=== PATIENT | male | born 1990 | race Caucasian/White ===

== ENCOUNTER 2019-10-21 09:41 | Emergency (ER) | payer MEDICAID, OTHER ==
[2019-10-21] MEDS ORDERED: ONDANSETRON HCL 4 MG/2 ML VIAL ONE (09:45)
[2019-10-21 10:14] LABS: BASOPHILS % (AUTO) 0.3 % (0.0-5.0); EOSINOPHILS % (AUTO) 0.4 % (0.0-8.0); LYMPHOCYTES % (AUTO) 13.6 % (21.0-51.0); MEAN CORPUSCULAR HEMOGLOBIN 31.1 pg (27.0-33.0); MEAN CORPUSCULAR HGB CONC 33.3 g/dL (32.0-36.0); MEAN CORPUSCULAR VOLUME 93.3 fL (79-99); MONOCYTES % (AUTO) 4.8 % (3.0-13.0); NEUTROPHILS % (AUTO) 79.7 % (40.0-77.0); PLATELET COUNT (AUTO) 263 K/uL (130-400); RED CELL DISTRIBUTION WIDTH 13.2 % (11.0-15.5); WHITE BLOOD COUNT (AUTO) 26.7 K/uL (4.8-10.8)
[2019-10-21 10:27] LABS: CREATININE 1.3 mg/dL (0.5-1.5); POTASSIUM 3.3 mmol/L (3.5-5.1)
[2019-10-21 10:32] LABS: ALBUMIN 4.2 g/dL (3.5-5.0); BILIRUBIN,TOTAL 0.6 mg/dL (0.2-1.0); TOTAL PROTEIN, SERUM 7.2 g/dL (6.0-8.3)
[2019-10-21 12:07] LABS: APPEARANCE,URINE Clear (CLEAR); BILIRUBIN,URINE Negative (NEGATIVE); COLOR,URINE Yellow (YELLOW); GLUCOSE, URINE (UA) 500 mg/dL (NEGATIVE); KETONES,URINE 40 mg/dL (NEGATIVE); LEUKOCYTE ESTERASE ,URINE Negative (NEGATIVE); NITRATE,URINE Negative (NEGATIVE); OCCULT BLOOD,URINE Negative (NEGATIVE); PROTEIN,URINE Negative (NEGATIVE); UROBILINOGEN,URINE 0.2 mg/dL (0.2-1.0)
[2019-10-21 12:17] LABS: BACTERIA,URINE Rare /HPF (None Seen); MUCUS,URINE Rare LPF (None Seen); RBC,URINE 0-1 /HPF (0-1); SQUAMOUS EPITHELIAL CELL,UR Rare /HPF (0-2); WBC,URINE 0-1 /HPF (0-1)
[2019-10-21 12:47] LABS: AMPHET/METH SCREEN,URINE NEGATIVE (NEGATIVE); BARBITURATE SCREEN, URINE NEGATIVE (NEGATIVE); BENZODIAZEPINES SCREEN,URINE NEGATIVE (NEGATIVE); CANNABINOID SCREEN,URINE POSITIVE (NEGATIVE); COCAINE SCREEN,URINE POSITIVE (NEGATIVE); OPIATE SCREEN,URINE NEGATIVE (NEGATIVE); PHENCYCLIDINE SCREEN,URINE NEGATIVE (NEGATIVE)
== END 2019-10-21 13:03 | disposition home or self-care (01) ==
LOC: EDH 09:41
DX: E16.2 Hypoglycemia, unspecified (principal); E86.0 Dehydration; F14.10 Cocaine abuse, uncomplicated; F10.10 Alcohol abuse, uncomplicated; Z72.0 Tobacco use
CPT/HCPCS: 36415; 80053; 80305; 81001; 82948; 85025; 96361; 96374; 99283; J2405

== ENCOUNTER 2020-02-10 08:46 | Emergency (ER) | payer MEDICAID ==
[2020-02-10] MEDS ORDERED: ONDANSETRON HCL 4 MG/2 ML VIAL ONE (08:49)
[2020-02-10 09:13] LABS: BASOPHILS % (AUTO) 0.4 % (0.0-5.0); HEMATOCRIT 42.9 % (42-54); LYMPHOCYTES % (AUTO) 20.6 % (21.0-51.0); MEAN CORPUSCULAR HEMOGLOBIN 31.2 pg (27.0-33.0); MEAN CORPUSCULAR VOLUME 91.7 fL (79-99); MONOCYTES % (AUTO) 4.5 % (3.0-13.0); NEUTROPHILS % (AUTO) 72.9 % (40.0-77.0); PLATELET COUNT (AUTO) 263 K/uL (130-400); RED BLOOD CELL COUNT(AUTO) 4.68 MIL/uL (4.50-6.20); RED CELL DISTRIBUTION WIDTH 12.5 % (11.0-15.5); WHITE BLOOD COUNT (AUTO) 20.7 K/uL (4.8-10.8)
[2020-02-10 09:20] LABS: CREATININE 1.3 mg/dL (0.5-1.5); POTASSIUM 3.4 mmol/L (3.5-5.1)
[2020-02-10 11:03] LABS: AMPHET/METH SCREEN,URINE NEGATIVE (NEGATIVE); BARBITURATE SCREEN, URINE NEGATIVE (NEGATIVE); BENZODIAZEPINES SCREEN,URINE NEGATIVE (NEGATIVE); CANNABINOID SCREEN,URINE POSITIVE (NEGATIVE); COCAINE SCREEN,URINE POSITIVE (NEGATIVE); OPIATE SCREEN,URINE NEGATIVE (NEGATIVE); PHENCYCLIDINE SCREEN,URINE NEGATIVE (NEGATIVE)
== END 2020-02-10 11:47 | disposition home or self-care (01) ==
LOC: EDH 08:46
DX: F14.10 Cocaine abuse, uncomplicated (principal); Z72.0 Tobacco use
CPT/HCPCS: 36415; 80048; 80305; 82550; 82948; 85025; 96361; 96374; 99283; J2405

== ENCOUNTER 2022-11-13 16:44 | Emergency (ER) | payer MEDICAID ==
[~2022-11-13] VITALS: Ht 165.1 cm; Wt 61.2 kg
[2022-11-13] MEDS ORDERED: DEXTROSE 5 % AND 0.9 % NACL 1,000 ML IV ONE (16:54)
[2022-11-13] MEDS ORDERED: DEXTROSE 50%-WATER 50 ML DISP.SYRIN IV ONE (16:54)
[2022-11-13 17:23] LABS: BASOPHILS % (AUTO) 0.4 % (0.0-5.0); EOSINOPHILS % (AUTO) 0.3 % (0.0-8.0); HEMATOCRIT 40.4 % (42-54); LYMPHOCYTES % (AUTO) 14.6 % (21.0-51.0); MEAN CORPUSCULAR HEMOGLOBIN 31.3 pg (27.0-33.0); MEAN CORPUSCULAR HGB CONC 33.4 g/dL (32.0-36.0); MEAN CORPUSCULAR VOLUME 93.5 fL (79-99); MONOCYTES % (AUTO) 3.4 % (3.0-13.0); NEUTROPHILS % (AUTO) 80.6 % (40.0-77.0); PLATELET COUNT (AUTO) 225 K/uL (130-400); RED BLOOD CELL COUNT(AUTO) 4.32 MIL/uL (4.50-6.20); RED CELL DISTRIBUTION WIDTH 12.8 % (11.0-15.5)
[2022-11-13] MEDS ORDERED: THIAMINE HCL 100 MG/ML 2ML VIAL IVP ONE (17:30)
[2022-11-13 17:33] LABS: CREATININE 1.1 mg/dL (0.5-1.5); POTASSIUM 3.9 mmol/L (3.5-5.1)
[2022-11-13 17:42] LABS: ALBUMIN 3.6 g/dL (3.5-5.0); MAGNESIUM 1.4 mg/dL (1.80-2.40); TOTAL PROTEIN, SERUM 6.2 g/dL (6.0-8.3)
[2022-11-13] MEDS ORDERED: 0.9%NACL 1000ML 1,000 ML IV ONE (18:00)
[2022-11-13] MEDS ORDERED: MAGNESIUM 2GM PREMIX 50ML 50 ML IV SCH (18:00)
[2022-11-13] MEDS ORDERED: ONDANSETRON 4MG INJ IVP SCH (18:00)
[2022-11-13 18:10] LABS: APPEARANCE,URINE CLEAR (CLEAR); BILIRUBIN,URINE NEGATIVE (NEGATIVE); COLOR,URINE COLORLESS (YELLOW); GLUCOSE, URINE (UA) >=1000 mg/dL (NEGATIVE); KETONES,URINE 40 mg/dL (NEGATIVE); LEUKOCYTE ESTERASE ,URINE NEGATIVE Leu/uL (NEGATIVE); NITRATE,URINE NEGATIVE (NEGATIVE); OCCULT BLOOD,URINE NEGATIVE (NEGATIVE); PH,URINE 5.5 (5.0-8.0); PROTEIN,URINE NEGATIVE (NEGATIVE); UROBILINOGEN,URINE 0.2 mg/dL (0.2-1.0)
[2022-11-13 18:23] LABS: MUCUS,URINE RARE LPF (None Seen); RBC,URINE 0-1 /HPF (0-1)
[2022-11-13 19:34] VITALS: BP 124/66
== END 2022-11-13 19:57 | disposition home or self-care (01) ==
LOC: EDH 16:44
DX: E16.2 Hypoglycemia, unspecified (principal); E86.0 Dehydration; F10.129 Alcohol abuse with intoxication, unspecified; F17.200 Nicotine dependence, unspecified, uncomplicated
CPT/HCPCS: 99285; 96365; 96375; 82550; 83735; 84484; 80053; 83690; 85025; 82948 ×2; 81001; 36415; 93005; J3490; J3475; J7030; J7070; J3411; J2405; J7042

== ENCOUNTER 2024-04-10 08:13 | Emergency (ER) | payer SELFPAY ==
[~2024-04-10] VITALS: Ht 167.6 cm; Wt 61.2 kg
[2024-04-10] MEDS ORDERED: PRED20TA3 PO (08:21)
--- NOTE | 2024-04-10 08:21 | ERN ---
General Chief Complaint: Skin Rash/Abscess Stated Complaint: RASH X 1 WEEK Time Seen by MD: 08:13 History of Present Illness Initial Comments 3-year-old male who presents for rash. Patient reports a generalized non irritating macular type rash that began a few days ago. He says it is spreading. He does report a mild cough declines any other symptoms such as fevers, oral lesions, respiratory distress, or GI symptoms. No medical history Smoker Allergies: Coded Allergies: No Known Drug Allergies (Unverified Allergy, Unknown, 02/10/20) Home Meds Active Scripts Prednisone (Prednisone) 20 Mg Tablet, 1 TAB PO BID for 5 Days, #10 TAB 0 Refills Prov:HI MUÑIZ DO 04/10/24 Past Medical History Past Medical History: No Pertinent History Past Surgical History: None ROS Dictation CONSTITUTIONAL: No chills, no fever, no weakness, no diaphoresis, no malaise. HEAD/FACE: No signs of trauma. EENT: No eye pain, no blurred vision, no tearing, no double vision, no ear pain, no ear discharge, no nose pain, no nasal congestion, no throat pain, no throat swelling, no mouth pain. RESPIRATORY: Cough CARDIOVASCULAR: No chest pain, no edema, no palpitations, no syncope. GASTROINTESTINAL/ABDOMINAL: No abdominal pain, no constipation, no diarrhea, no nausea, no vomiting. GENITOURINARY: No abnormal discharge, no dysuria, no frequent urination, no hematuria. No complaints of pain in the genitals. MUSCULOSKELETAL: No back pain, no gout, no joint pain, no joint swelling, no muscle pain, no muscle stiffness, no neck pain. INTEGUMENTARY: Diffuse rash over the trunk arms neck NEUROLOGICAL/PSYCH: No anxiety, not depressed, no emotional problem, no headache, no numbness, no pre-existing deficit, no history of seizures, no tremors, no weakness. HEMATOLOGIC/LYMPHATIC: Not anemic, no history of blood clots, no apparent bleeding, no bruising, glands not swollen. All Systems Negative, Except as Noted. Physical Exam Physical Exam Dictation VITAL SIGNS: Reviewed. GENERAL APPEARANCE: Alert, oriented x3, no acute distress, obese. HEAD AND FACE: Non-traumatic. EYES: PERRL, pink conjunctivas, eyelid no trauma, anterior chamber clear. EARS: Pinnas intact and no signs of trauma or erythema. Ear canals clear and no discharge. TMs no erythema. NOSE: No discharge, no bleeding. OROPHARYNX: Mouth normal, teeth no caries, tongue pink. Pharynx clear, no erythema. Tonsils no exudates, no abscesses noted. Mucous membrane moist. NECK: Supple, non-tender, no thyromegaly, no masses, no JVD, no bruits. BREAST: Deferred. CHEST: No tenderness, no crepitus, no paradoxical movement, no retractions. LUNGS: Clear, well-ventilated, symmetric, no rales, no wheezing, no rhonchi, no stridor, good breath sounds bilaterally. HEART: Regular rate, regular rhythm, no murmur, no gallops. VASCULAR: No peripheral edema. ABDOMEN: Soft, positive bowel sounds, nondistended, no guarding, nontender, no rebound, no masses no hepatomegaly, no splenomegaly, no Choe's sign, no hernias. RECTAL: Deferred. GENITAL: Deferred. NEUROLOGICAL: Normal speech, gross motor function intact, gross sensory function intact. MUSCULOSKELETAL: Neck nontender, full range of motion, back nontender, full range of motion. EXTREMITIES: Nontender, full range of motion. SKIN: Diffuse macular rash over the trunk arms and neck LYMPHATICS: Deferred. MDM CC: Diffuse rash, cough Historian: Patient Comorbidities: Smoker Limitations by social determinants of health: None Vital signs are stable Clinical exam is nontoxic. Macular rash not irritating over the trunk. The ENT exam is normal. Lung sounds are clear. There is no signs of anaphylaxis, Troncoso-Michel syndrome, petechiae, or any other life-threatening type rash. We will give a dose of steroids. The chest x-ray per my independent interpretation shows no cardiomegaly or focal infiltrates. We will discharge with prednisone and recommend PCP follow up. ED Course Orders Procedure Category Date Status Time Chest 1vw RAD 04/10/24 Taken 08:17 Prednisone 20mg Tab PHA 04/10/24 Complete (Deltasone/Orasone 2 08:30 Current Medications Medications (Trade) Dose Ordered Sig/Jaja Route PRN Reason Start Time Stop Time Status Last Admin Dose Admin Prednisone (deltaSONE/ oraSONE 20MG TAB) 20 mg ONCE ONCE PO 04/10/24 08:30 04/10/24 08:31 DC Vital Signs Date Time Temp Pulse Resp B/P (MAP) Pulse Ox O2 Delivery O2 Flow Rate FiO2 04/10/24 08:13 97.9 75 20 125/84 98 Room Air 0 DX & DISP Disposition: Discharge Departure Impression: Primary Impression: Rash Condition: Stable Scripts Prednisone (Prednisone) 20 Mg Tablet 1 TAB PO BID for 5 Days, #10 TAB 0 Refills Prov: HI MUÑIZ DO 04/10/24 Additional Instructions: I have prescribed prednisone for your rash. Take twice per day as prescribed. You can also take [id number] Zyrtec or Benadryl as needed for itching or discomfort. You can use cream such as calamine lotion. Your vital signs are normal. Your chest x-ray is normal. I recommend that you follow up with your primary doctor in 48 hours for re- evaluation. Please return to the emergency department if you have any concerns. Referrals: NONE (PCP) HI MUÑIZ DO Apr 10, 2024 08:21
[2024-04-10 08:44] VITALS: BP 125/84; PULSE 75; RESP 20; TEMP 97.8; O2SAT 98
--- NOTE | 2024-04-10 09:00 | HMCIMG ---
CHEST 1VW REASON: cough COMPARISON: None. FINDINGS: Single view of the chest was obtained. Lungs are clear. Heart size is normal. There is no pulmonary vascular congestion. Mediastinum and bony thorax appear unremarkable. IMPRESSION: 1. Normal single view chest x-ray.
[2024-04-10] MEDS: predniSONE 20 MG TABLET PO ONE (09:19)
== END 2024-04-10 09:23 | disposition home or self-care (01) ==
LOC: EDH 08:13
DX: R21 Rash and other nonspecific skin eruption (principal); F17.200 Nicotine dependence, unspecified, uncomplicated; Z79.52 Long term (current) use of systemic steroids
CPT/HCPCS: 71045; 99283

== ENCOUNTER 2024-04-20 07:55 | Emergency (ER) | payer SELFPAY ==
[~2024-04-20] VITALS: Ht 165.1 cm; Wt 61.2 kg
[~2024-04-20 07:55] MED LIST: PRED20TA3 PO
[2024-04-20] MEDS: Solu-medROL 40MG VIAL IM ONE (08:32)
[2024-04-20 09:27] VITALS: BP 128/65; PULSE 85; RESP 15; TEMP 97.6; O2SAT 99
[2024-04-20] MEDS ORDERED: AMOX500C2 PO (09:28)
--- NOTE | 2024-04-20 09:30 | ERN ---
General Chief Complaint: Allergic Reaction Stated Complaint: RASH Time Seen by MD: 07:59 History of Present Illness Initial Comments 33-year-old male who presents for a rash. He has a sandpapery maculopapular rash over her entire body. Has been present for a few weeks now. He did receive a course of steroids, it improved but now returns. No other symptoms. Allergies: Coded Allergies: No Known Drug Allergies (Unverified Allergy, Unknown, 02/10/20) Home Meds Active Scripts Prednisone (Prednisone) 20 Mg Tablet, 1 TAB PO BID for 5 Days, #10 TAB 0 Refills Prov:HI MUÑIZ DO 04/10/24 Past Medical History Past Medical History: No Pertinent History Past Surgical History: None ROS Dictation CONSTITUTIONAL: No chills, no fever, no weakness, no diaphoresis, no malaise. HEAD/FACE: No signs of trauma. EENT: No eye pain, no blurred vision, no tearing, no double vision, no ear pain, no ear discharge, no nose pain, no nasal congestion, no throat pain, no throat swelling, no mouth pain. RESPIRATORY: No cough, no orthopnea, no SOB, no stridor, no wheezing. CARDIOVASCULAR: No chest pain, no edema, no palpitations, no syncope. GASTROINTESTINAL/ABDOMINAL: No abdominal pain, no constipation, no diarrhea, no nausea, no vomiting. GENITOURINARY: No abnormal discharge, no dysuria, no frequent urination, no hematuria. No complaints of pain in the genitals. MUSCULOSKELETAL: No back pain, no gout, no joint pain, no joint swelling, no muscle pain, no muscle stiffness, no neck pain. INTEGUMENTARY: Rash NEUROLOGICAL/PSYCH: No anxiety, not depressed, no emotional problem, no headache, no numbness, no pre-existing deficit, no history of seizures, no tremors, no weakness. HEMATOLOGIC/LYMPHATIC: Not anemic, no history of blood clots, no apparent bleeding, no bruising, glands not swollen. All Systems Negative, Except as Noted. Physical Exam Physical Exam Dictation VITAL SIGNS: Reviewed. GENERAL APPEARANCE: Alert, oriented x3, no acute distress HEAD AND FACE: Non-traumatic. EYES: PERRL, pink conjunctivas, eyelid no trauma, anterior chamber clear. EARS: Pinnas intact and no signs of trauma or erythema. Ear canals clear and no discharge. TMs no erythema. NOSE: No discharge, no bleeding. OROPHARYNX: Mouth normal, teeth no caries, tongue pink. Pharynx clear, no erythema. Tonsils no exudates, no abscesses noted. Mucous membrane moist. NECK: Supple, non-tender, no thyromegaly, no masses, no JVD, no bruits. BREAST: Deferred. CHEST: No tenderness, no crepitus, no paradoxical movement, no retractions. LUNGS: Clear, well-ventilated, symmetric, no rales, no wheezing, no rhonchi, no stridor, good breath sounds bilaterally. HEART: Regular rate, regular rhythm, no murmur, no gallops. VASCULAR: No peripheral edema. ABDOMEN: Soft, positive bowel sounds, nondistended, no guarding, nontender, no rebound, no masses no hepatomegaly, no splenomegaly, no Choe's sign, no hernias. RECTAL: Deferred. GENITAL: Deferred. NEUROLOGICAL: Normal speech, gross motor function intact, gross sensory function intact. MUSCULOSKELETAL: Neck nontender, full range of motion, back nontender, full range of motion. EXTREMITIES: Nontender, full range of motion. SKIN: Fine sandpaper-like texture starting in the neck and chest, maculopapular, itching LYMPHATICS: Deferred. Results Laboratory and Microbiology Lab and Micro Result Laboratory Tests Test 04/20/24 08:38 Group A Streptococcus Rapid positive (NEGATIVE) *A MDM CC: Full body rash Historian: Patient No comorbidities Vital signs are stable Differential diagnosis: Allergic reaction, generalized rash, scarlet fever. Patient does have a fine sandpaper type rash, it is itchy and it responded initially to steroids but has returned. There is no systemic symptoms. I did get a strep swab which was positive. Possibly scarlet fever although he is currently asymptomatic other rash. He received a dose of steroids here in the ER. We will discharge with prednisone and amoxicillin recommend PCP follow up. ED Course Orders Procedure Category Date Status Time Rapid (Group A Strep) LAB 04/20/24 Complete 08:22 Methylprednisolone PHA 04/20/24 Complete Succ 40mg (Solu-Medro 08:30 Current Medications Medications (Trade) Dose Ordered Sig/Jaja Route PRN Reason Start Time Stop Time Status Last Admin Dose Admin Methylprednisolone Sodium Succinate (Solu-medROL 40MG) 40 mg ONCE ONCE IM 04/20/24 08:30 04/20/24 08:31 DC 04/20/24 08:32 Vital Signs Date Time Temp Pulse Resp B/P (MAP) Pulse Ox O2 Delivery O2 Flow Rate FiO2 04/20/24 07:57 98.1 87 18 138/102 99 Room Air 0 DX & DISP Disposition: Discharge Departure Impression: Primary Impression: Rash Condition: Stable Scripts Prednisone (Prednisone) 20 Mg Tablet 1 TAB PO BID for 5 Days, #10 TAB 0 Refills Prov: HI MUÑIZ DO 04/20/24 Amoxicillin (Amoxicillin) 500 Mg Capsule 1 CAP PO TID for 10 Days, #30 CAP 0 Refills Prov: HI MUÑIZ DO 04/20/24 Additional Instructions: You may have an allergic reaction or scarlet fever causing a rash. You received steroids here in the ER. This reduces inflammation. I have prescribed prednisone tabs. You can take twice per day for the next five days for your symptoms. I have also prescribed amoxicillin since your strep test was positive and this may be a scarlatiniform rash caused by bacteria. Take the amoxicillin as prescribed. You should take three tabs per day for the next 10 days. You can use [id number] medication such as cetirizine or Benadryl for the itching. You can also apply 1% hydrocortisone or calamine lotion. You may need to see an resolution specialist. I recommend contacting Dr.William Vaughn here in [place]. Referrals: NONE (PCP) HI MUÑIZ DO Apr 20, 2024 09:30
== END 2024-04-20 09:39 | disposition home health service (06) ==
LOC: EDH 07:55
DX: R21 Rash and other nonspecific skin eruption (principal); Z79.52 Long term (current) use of systemic steroids
CPT/HCPCS: 99283; 87880; 96372; J2919